=== PATIENT | female | born 1995 | race Caucasian/White ===

== ENCOUNTER 2017-10-10 07:04 | Outpatient (CLI) | payer BC | END 2017-10-10 07:05 | disposition home or self-care (01) | LOC: BICULT 07:04 | PROVIDERS: ATTEND Family Medicine | DX: N63.10 Unspecified lump in the right breast, unspecified quadrant (principal) ==

== ENCOUNTER 2023-12-26 14:38 | Outpatient (CLI) | payer BC | END 2023-12-26 14:39 | disposition home or self-care (01) | LOC: BICULT 14:38 | PROVIDERS: ATTEND Nurse Practitioner Family | DX: N63.11 Unspecified lump in the right breast, upper outer quadrant (principal) ==